=== PATIENT | female | born 1995 | race Asian ===

== ENCOUNTER 2025-11-24 12:01 | Emergency (ER) | payer OTHER ==
[~2025-11-24] VITALS: Ht 167.6 cm; Wt 84.0 kg
[2025-11-24 12:12] VITALS: BP 131/81; PULSE 106; RESP 18; TEMP 98.2; O2SAT 97
[2025-11-24 12:28] LABS: PLATELET COUNT (AUTO) 266 K/uL (150-450); RED BLOOD CELL COUNT(AUTO) 3.86 MIL/uL (4.00-5.20); RED CELL DISTRIBUTION WIDTH 13.5 % (11.5-14.5); WHITE BLOOD COUNT (AUTO) 16.3 K/uL (4.5-11.0)
[2025-11-24 12:38] LABS: CALCIUM, TOTAL 9.3 mg/dL (8.8-10.5); CREATININE 0.49 mg/dL (0.60-1.30); GLOMERULAR FILTR. RATE CALC > 60 mL/min (>60); GLUCOSE,RANDOM 91 mg/dL (70-110); SODIUM SERUM 138 mmol/L (136-145); UREA NITROGEN, BLOOD 13 mg/dL (7-18)
== END 2025-11-24 13:57 | disposition short-term general hospital (02) ==
LOC: EMS 12:01
DX: O26.893 Other specified pregnancy related conditions, third trimester (principal); N89.8 Other specified noninflammatory disorders of vagina; Z3A.30 30 weeks gestation of pregnancy
CPT/HCPCS: 76805; 80048; 84702; 85025; 99285